=== PATIENT | male | born 1995 | race Caucasian/White ===

== ENCOUNTER 2016-06-09 14:37 | Emergency (ER) | payer BC ==
[~2016-06-09] VITALS: Ht 188 cm; Wt 88.7 kg
[2016-06-09 14:38] VITALS: TEMP 37; Ht 188 cm; Wt 88.7 kg
[2016-06-09] MEDS ORDERED: GI COCKTAIL PO STA (14:58)
[2016-06-09] MEDS ORDERED: ALUMINUM/MAGNESIUM SUSP 30 ML UDC ONE (15:09)
[2016-06-09] MEDS ORDERED: LIDOCAINE HCL 2% VISC SOLN 20 ML UDC ONE (15:09)
[2016-06-09] MEDS ORDERED: OPTIRAY 320 IV PRN (15:15)
[2016-06-09 15:29] LABS: ALT/SGPT 35 U/L (12-78); BLOOD UREA NITROGEN 15 mg/dl (7-18); BUN/CREATININE RATIO 12.8 (10-20); CALCIUM 9.2 mg/dl (8.5-10.1); CARBON DIOXIDE 28 mmol/L (21-32); CHLORIDE 105 mmol/L (98-107); GLUCOSE 83 mg/dl (70-99); SODIUM 141 mmol/L (136-145)
[2016-06-09 15:33] LABS: ALKALINE PHOSPHATASE 103 U/L (45-117); AST/SGOT 34 U/L (15-37)
--- NOTE | 2016-06-09 16:42 | DIAGNOSTIC IMAGING REPORT ---
CT OF THE CHEST WITH IV CONTRAST CLINICAL HISTORY: Upper chest pain. Globus sensation. Dysphagia. COMPARISON STUDY: No previous studies for comparison. TECHNIQUE: Following IV administration of 119 mL of Optiray-320, helical axial images of the chest were obtained. Images were viewed in the axial, sagittal and coronal planes. IV contrast was administered without complication. Oral contrast was administered immediately prior to scan. CT DOSE: 412.31 mGycm FINDINGS: No pneumomediastinum is present. There is no extraluminal contrast. Contrast is noted within the esophagus and the stomach. There is possible mild wall thickening of the esophagus just below the level the thoracic inlet. The size of the heart is normal. There is no pericardial effusion. There are no enlarged thoracic lymph nodes. No pneumothorax or pleural effusion is present. Lungs are clear. Bony thorax is unremarkable. Visualized portions of the upper abdomen are unremarkable. No radiopaque foreign bodies are identified on this exam. IMPRESSION: 1. No pneumomediastinum. No oral contrast extravasation. 2. Apparent mild wall thickening of the esophagus just below the level of the thoracic inlet. This could be due to underdistention. 3. No pneumothorax or pleural effusion. Electronically signed by: Rocael Michelle M.D. 06/09/2016 4:40 PM Dictated Date/Time: 06/09/2016 4:32 PM
[2016-06-09] MEDS ORDERED: OXYCODONE HCL IR 5 MG TAB (IMMEDIATE RELEASE) PO STA (17:30)
[2016-06-09] MEDS ORDERED: PANTOprazole SOD 40 MG TAB PO STA (17:30)
[2016-06-09] MEDS ORDERED: SUCRALFATE 1 GM/10 ML UDC PO STA (17:56)
[2016-06-09] MEDS ORDERED: LIDOCAINE HCL 2% VISC SOLN 20 ML UDC MT ONE (18:00)
[2016-06-09] MEDS ORDERED: LIDOCAINE HCL 2% VISC SOLN 20 ML UDC MT STA (19:13)
[2016-06-09] MEDS ORDERED: DEXAMETHASONE SOD INJ 10 MG/ML VIAL IV ONE (19:15)
[2016-06-09] MEDS ORDERED: OXYCODONE IR HOME PACK PO ONE (19:15)
[2016-06-09] MEDS ORDERED: CRFL PO (19:28)
[2016-06-09] MEDS ORDERED: LIDO2SOL19 PO (19:28)
[2016-06-09 19:52] VITALS: BP 139/87; PULSE 75; O2SAT 100
--- NOTE | 2016-06-09 22:10 | EMERGENCY ROOM VISIT NOTE ---
History Report prepared by Orlando: Jason Tobias Under the Supervision of: Dr. Lorenzo Mckeon M.D. First contact with patient: 14:47 Chief Complaint: THROAT PAIN/INJURY Stated Complaint: CHEST/THROAT PAIN History of Present Illness The patient is a 20 year old male who presents to the Emergency Room with complaints of persistent trouble swallowing that started yesterday evening. He was eating a grilled chicken, and then an hour afterwards, the patient started having trouble swallowing. He has been able to swallow, but as soon as he swallows, the patient gets pain in his upper chest and esophagus, and that is followed by shortness of breath which them quickly fades. He says the pain lasts a few seconds, and he rates the pain as a 6 out of 10 in severity. The patient did go to [facility] prior to arrival, and he had a negative mono test and strep screen. His chest x-ray was normal. The patient additionally notes that he was lifting weights yesterday. He was concerned that may be something ruptured. He does not feel like he has a sore throat from an illness. Pt denies LOC, headache, fevers, chills, diaphoresis, visual changes , nausea, vomiting, abdominal pain, back pain, melena, hematochezia, urinary symptoms, numbness, weakness, lymphadenopathy, rash, or other complaints. Source of History: patient Onset: Yesterday evening Position: throat (trouble swallowing) Timing: other (persistent) Associated Symptoms: + SOB, + chest pain Note: Associated symptoms: Pain in lower esophagus after swallowing. Review of Systems See HPI for pertinent positives and negatives. A total of ten systems were reviewed and were otherwise negative. Past Medical & Surgical Medical Problems: (1) Asthma (2) PNA (pneumonia) Surgical Problems: (1) Hx of tonsillectomy Family History Cancer Diabetes mellitus Hypertension Social History Smoking Status: Never Smoker Alcohol Use: none Housing Status: lives with family Occupation Status: [employer] Current/Historical Medications Scheduled Epinephrine (Epipen), 0.3 MG IM UD Sucralfate (Carafate), 10 ML PO QID Scheduled PRN Albuterol Hfa (Ventolin Hfa), 2-4 PUFFS INH Q6H PRN for SOB/Wheezing Lidocaine Hcl (Mouth-Throat) (Lidocaine Viscous), 5 ML PO QID PRN for Pain Allergies Coded Allergies: Egg (Verified Allergy, Severe, ANAPHYLAXIS, 06/09/16) Nut Tree (Verified Allergy, Severe, ANAPHYLAXIS, 06/09/16) Physical Exam Vital Signs Date Time Temp Pulse Resp B/P Pulse Ox O2 Delivery O2 Flow Rate FiO2 06/09/16 19:52 75 18 139/87 100 Room Air 06/09/16 18:16 52 18 143/67 99 Room Air 06/09/16 16:34 70 18 131/60 100 Room Air 06/09/16 15:04 98 Room Air 06/09/16 14:38 37.0 63 22 98 Room Air Physical Exam GENERAL: Awake, alert, uncomfortable appearing, in no distress HENT: Normocephalic, atraumatic. Oropharynx unremarkable. EYES: Normal conjunctiva. Sclera non-icteric. NECK: Supple. No nuchal rigidity. FROM. No JVD. RESPIRATORY: Clear to auscultation. CARDIAC: Regular rate, normal rhythm. Extremities warm and well perfused. Pulses equal. ABDOMEN: Soft, non-distended. No tenderness to palpation. No rebound or guarding. No masses. RECTAL: Deferred. MUSCULOSKELETAL: Chest examination reveals no tenderness. The back is symmetrical on inspection without obvious abnormality. There is no CVA tenderness to palpation. No joint edema. LOWER EXTREMITIES: Calves are equal size bilaterally and non-tender. No edema. No discoloration. NEURO: Normal sensorium. No sensory or motor deficits noted. SKIN: No rash or jaundice noted. Medical Decision & Procedures ER Provider Diagnostic Interpretation: CT: Radiology results as stated below per my review and radiologist interpretation CT OF THE CHEST WITH IV CONTRAST CLINICAL HISTORY: Upper chest pain. Globus sensation. Dysphagia. COMPARISON STUDY: No previous studies for comparison. TECHNIQUE: Following IV administration of 119 mL of Optiray-320, helical axial images of the chest were obtained. Images were viewed in the axial, sagittal and coronal planes. IV contrast was administered without complication. Oral contrast was administered immediately prior to scan. CT DOSE: 412.31 mGycm FINDINGS: No pneumomediastinum is present. There is no extraluminal contrast. Contrast is noted within the esophagus and the stomach. There is possible mild wall thickening of the esophagus just below the level the thoracic inlet. The size of the heart is normal. There is no pericardial effusion. There are no enlarged thoracic lymph nodes. No pneumothorax or pleural effusion is present. Lungs are clear. Bony thorax is unremarkable. Visualized portions of the upper abdomen are unremarkable. No radiopaque foreign bodies are identified on this exam. IMPRESSION: 1. No pneumomediastinum. No oral contrast extravasation. 2. Apparent mild wall thickening of the esophagus just below the level of the thoracic inlet. This could be due to underdistention. 3. No pneumothorax or pleural effusion. Electronically signed by: Rocael Michelle M.D. 06/09/2016 4:40 PM Dictated Date/Time: 06/09/2016 4:32 PM Laboratory Results 06/09/16 15:01 Test 06/09/16 15:01 Anion Gap 8.0 mmol/L (3-11) Est Creatinine Clear Calc Drug Dose 115.2 ml/min Estimated GFR () 101.0 Estimated GFR (Non- 87.1 BUN/Creatinine Ratio 12.8 (10-20) Calcium Level 9.2 mg/dl (8.5-10.1) Total Bilirubin 0.7 mg/dl (0.2-1) Direct Bilirubin 0.2 mg/dl (0-0.2) Aspartate Amino Transf (AST/SGOT) 34 U/L (15-37) Alanine Aminotransferase (ALT/SGPT) 35 U/L (12-78) Alkaline Phosphatase 103 U/L (45-117) Troponin I < 0.015 ng/ml (0-0.045) Total Protein 8.0 gm/dl (6.4-8.2) Albumin 4.4 gm/dl (3.4-5.0) Laboratory results reviewed by me Medications Administered Medications (Trade) Dose Ordered Sig/Radha Route Start Time Stop Time Status Last Admin Dose Admin Al Hydroxide/Mg Hydroxide (Maalox Susp) 30 ml STK-MED ONCE .ROUTE 06/09/16 15:09 06/09/16 15:12 DC 06/09/16 15:16 30 ML Lidocaine HCl (Viscous Lidocaine 2% Soln) 20 ml STK-MED ONCE .ROUTE 06/09/16 15:09 06/09/16 15:12 DC 06/09/16 15:16 20 ML Pantoprazole Sodium (Protonix Tab) 40 mg NOW STAT PO 06/09/16 17:30 06/09/16 17:32 DC 06/09/16 17:30 40 MG Oxycodone HCl (Roxicodone Immediate Rel Tab) 5 mg NOW STAT PO 06/09/16 17:30 06/09/16 17:32 DC 06/09/16 17:30 5 MG Sucralfate (Carafate Susp) 1 gm NOW STAT PO 06/09/16 17:56 06/09/16 17:58 DC 06/09/16 18:13 1 GM Lidocaine HCl (Viscous Lidocaine 2% Soln) 5 ml NOW ONCE MT 06/09/16 18:00 06/09/16 18:01 DC 06/09/16 18:13 5 ML Oxycodone HCl (Roxicodone Immediate Rel 5MG Home Pack) 1 homepack UD ONCE PO 06/09/16 19:15 06/09/16 19:16 DC 06/09/16 19:47 1 HOMEPACK Dexamethasone Sodium Phosphate (Decadron Inj) 10 mg NOW ONCE IV 06/09/16 19:15 06/09/16 19:16 DC 06/09/16 19:46 10 MG Lidocaine HCl (Viscous Lidocaine 2% Soln) 10 ml NOW STAT MT 06/09/16 19:13 06/09/16 19:15 DC 06/09/16 19:46 10 ML ECG Indication: other (trouble swallowing) Rate (beats per minute): 55 Rhythm: sinus bradycardia Findings: no ectopy, other (J-point elevation, early repolarization) ED Course 1456: The patient was evaluated in room A4A. A complete history and physical exam was performed. 1458: Ordered GI Cocktail 24 ml PO. 1615: I reevaluated the patient and he has had no relief from the GI Cocktail. He is going to CT. 1730: Ordered Roxicodone Immediate Rel Tab 5 mg PO, Protonix Tab 40 mg PO. 1756: Ordered Carafate Susp 1 gm PO. 1800: Ordered Viscous Lidocaine 2% Soln 5 ml MT. 180: I discussed the patient with Dr. Ana HOGAN. 180: I reevaluated the patient and he is resting comfortably. 1912: Ordered Viscous Lidocaine 2% Soln 10 ml MT. 5: Ordered Decadron Inj 10 mg IV, Roxicodone Immediate Rel 5MG Home Pack 1 homepack PO. 0: I reevaluated the patient and he is resting comfortably. Discussed results and discharge instructions: He verbalized understanding and agreement. The patient is ready for discharge. Medical Decision Triage Nursing notes reviewed. The patient's presentation and history were concerning for dysphagia. The patient denies any significant ingestions. He has not been vomiting. The patient has not taken any pills recently. He does not think there was any substances, bones, or foreign material in the chicken. Differential diagnosis includes viral syndrome, strep pharyngitis, tonsillitis, mononucleosis, retropharyngeal abscess, peritonsillar abscess, dental pathology , esophagitis, pneumomediastinum, mediastinitis, Cardiac sources, as well as other etiologies were entertained. The patient was evaluated. He was somewhat uncomfortable with swallowing but was tolerating his own saliva. He was given a GI cocktail. He noted that this really did not help a whole lot. The patient declined other analgesia. He had an unremarkable CBC, mono screen and strep test at the health services. His chemistry panel here was unremarkable. ECG here did not reveal any acute pathology. Again his symptoms are only with swallowing. The patient underwent CT imaging of his chest with IV contrast as well as an oral contrast bolus just prior to imaging. The contrast did go the whole with through to his stomach. There was some questionable thickening in the upper esophagus and this would be in the area of his pain. By his history it is difficult to elucidate a cause for an esophagitis. He denies any recent viral symptoms. There is no evidence of mediastinitis, contrast extravasation or other pathology. I then did give the patient 5 mg of oxycodone and Protonix. I did discuss case with gastroenterology. It was recommended to try slow sips of viscous lidocaine and Carafate. These were ordered for the patient and the patient also was given some to go home with. GI did recommend outpatient follow-up with close instructions to return if he develops fevers, difficulty swallowing, bleeding, or any other problems. This was conveyed to the patient. I did write prescriptions for Carafate and viscous lidocaine. The patient will also be given an oxycodone home pack. The patient believes he is getting her home tomorrow and follow-up with his own physician. I did outline return instructions explicitly. He worsens in any way he will be back. It appears that the patient has some mild esophagitis, etiology unknown. By the evaluation outlined above other emergent etiologies such as those listed in the differential, as well as others, were deemed relatively unlikely. The patient was informed about the findings as listed above. All questions were answered and he was pleased with the treatment. Return instructions were outlined and the patient was discharged in stable condition. The patient was referred to gastroenterology for follow-up for a recheck of the current condition. The chart was completed utilizing [employer] Speech voice recognition software. Grammatical errors, random word insertions, pronoun errors, and incomplete sentences are an occasional consequence of this system due to software limitations, ambient noise, and hardware issues. Any formal questions or concerns about the content, text, or information contained within the body of this dictation should be directly addressed to the physician for clarification. Consults Time Called: 1756 Consulting Physician: Dr. Ana HOGAN Returned Call: 1800 I discussed the patient with Dr. Ana HOGAN. Impression Primary Impression: Dysphagia Additional Impression: Esophagitis Scribe Attestation The scribe's documentation has been prepared under my direction and personally reviewed by me in its entirety. I confirm that the note above accurately reflects all work, treatment, procedures, and medical decision making performed by me. Departure Information Dispostion Home / Self-Care Prescriptions Lidocaine Hcl (Mouth-Throat) (LIDOCAINE VISCOUS) 2 % Cece 5 ML PO QID Y for Pain, #60 ML Prov: Lorenzo Mckeon MD 06/09/16 Sucralfate (CARAFATE) 1 Gm/10 Ml Shelli 10 ML PO QID, #60 ML Prov: Lorenzo Mckeon MD 06/09/16 Referrals [facility] (PCP) Michael Tapia M.D. Forms HOME CARE DOCUMENTATION FORM, IMPORTANT VISIT INFORMATION, WORK / SCHOOL INSTRUCTIONS Patient Instructions My [facility] Additional Instructions DO NOT drive, drink alcohol, operate machinery, or perform dangerous activities today. You were given medications in the ER that can affect your ability to safely function or operate a vehicle. Oxycodone (OxyIR) 5mg: Take 1-2 pills every four hours for breakthrough pain. Avoid alcohol, operating machinery or dangerous equipment, working on ladders or roofs, DRIVING, or situations where being under the influence may be dangerous. Carafate 10 mL 4 times a day as needed for the next 1-2 days and then as needed. Viscous lidocaine 5 mL 4 times a day as needed for the next 1-2 days Rest and drink plenty of fluids as tolerated. Clear liquid diet such as soup broth, smoothies etc. No solid foods until symptoms resolve. Slowly advance the diet. Continue current medications. Avoid strenuous activities and anything that worsens your pain. Resume normal activities once your symptoms resolve. Return to the ER immediately for worsening or persistent chest pain, abdominal pain, vomiting, fevers, chest pains, difficulty breathing, vomiting blood, worsening of your condition, or as needed. Follow up with your primary physician when you return home for a recheck of your current condition. You may also follow-up with [facility]. The number is listed below under Dr. tapia Problem Qualifiers
[2016-08-01] MEDS ORDERED: VNTHFA/IN INH (14:54)
[2016-08-01] MEDS ORDERED: EPP3/2 IM (14:54)
== END 2016-06-09 19:50 | disposition home or self-care (01) ==
LOC: C.EDB 14:40 → C.EDA 19:50
DX: R13.10 Dysphagia, unspecified (principal); K20.9 Esophagitis, unspecified; J45.909 Unspecified asthma, uncomplicated; Z79.899 Other long term (current) drug therapy

== ENCOUNTER 2016-08-01 18:45 | Emergency (ER) | payer BC ==
[~2016-08-01] VITALS: Ht 188 cm; Wt 89.4 kg
[~2016-08-01 18:45] MED LIST: CRFL PO; EPP3/2 IM; VNTHFA/IN INH
[2016-08-01 18:51] VITALS: Ht 188 cm; Wt 89.4 kg
[2016-08-01] MEDS ORDERED: DiphenhydrAMINE HCL 50 MG/ML VIAL IV STA (18:56)
[2016-08-01] MEDS ORDERED: SODIUM CHLORIDE 0.9% 1000ML 1,000 ML IV STA (18:56)
[2016-08-01] MEDS ORDERED: FAMOTIDINE 20MG/102 ML D5W IV STA (18:56)
[2016-08-01] MEDS ORDERED: DEXAMETHASONE SOD INJ 10 MG/ML VIAL IV ONE (19:00)
[2016-08-01] MEDS ORDERED: EpINEphrine INJ 1MG/ML AMP 1 MG/ML AMP ONE (19:01)
--- NOTE | 2016-08-01 19:06 | EMERGENCY ROOM VISIT NOTE ---
History Report prepared by Orlando: Paul Murrieta Under the Supervision of: Dr. Faisal Walters M.D. First contact with patient: 18:54 Chief Complaint: ALLERGIC REACTION Stated Complaint: ALLERIGIC REACTION History of Present Illness The patient is a 20 year old male who presents to the Emergency Room with complaints of a sudden allergic reaction occurring prior to arrival. He states that he was given a protein shake by his friend. The patient states that he is allergic to peanuts and eggs, and the last time that he had an allergic reaction was around 9 years old. The patient states that he has taken an EpiPen before and the last time might have been around 13 years old. The patient denies any drugs or alcohol. Per the nursing staff, the patient took two Benadryl prior to arrival. Source of History: patient, nursing staff Onset: prior to arrival Position: other (global) Quality: other (allergic reaction) Timing: other (sudden) Review of Systems See HPI for pertinent positives & negatives. A total of 10 systems reviewed and were otherwise negative. Past Medical & Surgical Medical Problems: (1) Asthma (2) PNA (pneumonia) Surgical Problems: (1) Hx of tonsillectomy Family History Cancer Diabetes mellitus Hypertension Social History Smoking Status: Never Smoker Alcohol Use: none Housing Status: lives with family Occupation Status: [employer] Current/Historical Medications Scheduled Methylprednisolone (Medrol Dosepak), 1 PKT PO UD Scheduled PRN Albuterol Hfa (Ventolin Hfa), 2-4 PUFFS INH Q6H PRN for SOB/Wheezing Epinephrine (Epipen), 0.3 MG IM UD PRN for ALLERGIC REACTION Allergies Coded Allergies: Egg (Verified Allergy, Severe, ANAPHYLAXIS, 06/09/16) Nut Tree (Verified Allergy, Severe, ANAPHYLAXIS, 06/09/16) Physical Exam Vital Signs Date Time Temp Pulse Resp B/P Pulse Ox O2 Delivery O2 Flow Rate FiO2 08/01/16 21:53 75 18 149/72 96 08/01/16 21:01 63 15 126/57 96 Room Air 08/01/16 20:45 69 15 128/79 96 Room Air 08/01/16 20:06 78 15 138/75 96 Room Air 08/01/16 19:44 81 20 151/74 100 Nasal Cannula 2.0 08/01/16 19:16 67 19 164/87 100 Nasal Cannula 2.0 08/01/16 19:08 77 08/01/16 19:00 99 Room Air 08/01/16 18:55 80 24 202/107 98 Nasal Cannula 2.0 08/01/16 18:51 92 18 93 Room Air Physical Exam GENERAL: Patient is in sever distress and uncomfortable. HEENT: Edema to bilateral sides of face including the eyelids and lips. Left eye was swollen shut. No acute trauma, normocephalic atraumatic, mucous membranes moist, no nasal congestion, no scleral icterus. NECK: No stridor, no adenopathy, no meningismus, trachea is midline. LUNGS: Mild inspiratory stridor. No dyspnea. Clear to auscultation and equal bilaterally. No wheeze, no rhonchi. HEART: Tachycardic rate and rhythm. No murmurs, rubs, gallops appreciated. ABDOMEN: Soft, nontender, bowel sounds positive, no masses appreciated, no peritonitis. BACK: No midline tenderness, no CVA tenderness EXTREMITIES: Normal motion all extremities, no cyanosis, no edema. NEUROLOGIC: Alert and oriented, no acute motor or sensory deficits, no focal weakness, cranial nerves grossly intact. SKIN: Diffuse erythema over the entire back, chest, and arms. No jaundice, no diaphoresis. Medical Decision & Procedures Medications Administered Medications (Trade) Dose Ordered Sig/Radha Route Start Time Stop Time Status Last Admin Dose Admin Epinephrine HCl (EpINEphrine INJ 1MG/ML AMP/VIAL) 1 mg STK-MED ONCE .ROUTE 08/01/16 19:01 08/01/16 19:02 DC 08/01/16 19:08 0.5 MG Famotidine (Pepcid 20mg/100 ml) 20 mg ONE STAT IV 08/01/16 18:56 08/01/16 18:58 DC 08/01/16 19:08 20 MG Diphenhydramine HCl (Benadryl Inj) 50 mg NOW STAT IV 08/01/16 18:56 08/01/16 18:57 DC 08/01/16 19:08 50 MG Dexamethasone Sodium Phosphate 10 mg 10 mg NOW ONCE IV 08/01/16 19:00 08/01/16 19:01 DC 08/01/16 19:08 10 MG Sodium Chloride (Nss 1000ml) 1,000 ml @ 999 mls/hr Q1H1M STAT IV 08/01/16 18:56 08/01/16 19:56 DC 08/01/16 19:08 999 MLS/HR ED Course 1853: The patient was evaluated in room B1. A complete history and physical exam was performed. 1855: Sodium Chloride 1000 ml @ 999 mls/hr IV, Benadryl Inj 50mg IV, Pepcid 20mg /100ml 20mg IV 1899: Decadron Inj 10mg IV 1900: Epinephrine HCl 0.5mg IV 2022: I reevaluated the patient, and he is feeling much better. There is still some swelling around the left eye. No further reaction. 2105: The patient was feeling well in no distress. 2143: Reevaluated the patient, and he had no symptoms other than mild left eyelid edema. He is comfortable going home. He states that he has multiple EpiPens at home.Discussed results and discharge instructions: he verbalized understanding and agreement. The patient is ready for discharge. Medical Decision Differential: Allergic Reaction, Urticaria, Anaphylaxis, Zuniga-Howie Syndrome, Toxic Epidermal Necrolysis, Erythema Multiforme, Cellulitis, amongst other etiologies entertained. 20 yr old male with acute anaphylaxis to presumed peanut in protein shake. History allergic rx to peanuts and eggs. Severe initially though rapidly improved with IM epi, and over next hour symptoms resolved with steroids/ benadryl/pepcid. Some left eyelid edema noted and I suspect this will take several days to go down. No further breathing issues nor other facial swelling. Rash completely gone. Monitored for > 3 hours without any rebound. He has multiple epi pens at home. Aware RTED immediately if symptoms of anaphylaxis start returning. He is stable and comfortable with discharge. Steroids over next few days given severity of these symptoms. Impression Primary Impression: Anaphylaxis Scribe Attestation The scribe's documentation has been prepared under my direction and personally reviewed by me in its entirety. I confirm that the note above accurately reflects all work, treatment, procedures, and medical decision making performed by me. Departure Information Dispostion Home / Self-Care Prescriptions Methylprednisolone (MEDROL DOSEPAK) 4 Mg Corey 1 PKT PO UD for 6 Days, #1 PKT Prov: Faisal Walters M.D. 08/01/16 Forms HOME CARE DOCUMENTATION FORM, IMPORTANT VISIT INFORMATION Patient Instructions ED Anaphylaxis General, My [facility] Problem Qualifiers Primary Impression: Anaphylaxis Encounter type: initial encounter Qualified Codes: T78.2XXA - Anaphylactic shock, unspecified, initial encounter
[2016-08-01] MEDS ORDERED: METH4PAK PO ×2 (21:27→21:50)
[2016-08-01 21:53] VITALS: BP 149/72; PULSE 75; O2SAT 96
== END 2016-08-01 21:54 | disposition home or self-care (01) ==
LOC: C.EDB 18:46
DX: T78.2XXA Anaphylactic shock, unspecified, initial encounter (principal); J45.909 Unspecified asthma, uncomplicated; Z82.49 Family history of ischemic heart disease and other diseases of the circulatory system; Z83.3 Family history of diabetes mellitus; X58.XXXA Exposure to other specified factors, initial encounter